=== PATIENT | male | born 1990 | race Caucasian/White ===

== ENCOUNTER 2020-07-15 10:18 | Day surgery (SDC) | payer BC ==
[~2020-07-15] VITALS: Ht 195.6 cm; Wt 120.9 kg
[2020-07-15 10:55] VITALS: BP 125/76; PULSE 76; TEMP 98.1
[2020-07-15 12:36] VITALS: BP 115/65; PULSE 76
--- NOTE | 2020-07-15 12:36 | NUR ---
Patient returns to room 5 per cart from surgery and is awake and alert. Exofin dressing dry x3 on lipoma excision sites. IV fluids infusing. Site is free of redness. Siderails up x2 and call light in reach. Spouse in room. Dr. Pineda in the room to talk with patient and spouse. All questions answered. Given coffee and water to drink. Complains of jaw soreness from positioning.
[2020-07-15 12:51] VITALS: BP 111/71; PULSE 77
--- NOTE | 2020-07-15 12:51 | NUR ---
Sitting up on the edge of the cart and talking to spouse.
[2020-07-15 13:06] VITALS: BP 124/82; PULSE 70
--- NOTE | 2020-07-15 13:06 | NUR ---
Resting without complaints of pain or nausea. IV discontinued and site is free of redness or swelling. Siderails lowered and patient dresses self.
--- NOTE | 2020-07-15 13:30 | NUR ---
Dismissal instructions given and voices understanding of these. Assisted patient into wheelchair and taken to the front door per wheelchair and assisted into vehicle with instructions in hand.
[2020-07-15] MEDS ORDERED: MOTRIN 600600 MG/TAB PO (14:50)
[2020-07-15] MEDS ORDERED: NORCO 325 MG-51 TAB PO (14:50)
== END 2020-07-15 13:30 | disposition home or self-care (01) ==
LOC: SDCO 10:18
DX: D17.1 Benign lipomatous neoplasm of skin and subcutaneous tissue of trunk (principal); F17.290 Nicotine dependence, other tobacco product, uncomplicated
CPT/HCPCS: J1885; J2704; J3010; J7120